=== PATIENT | female | born 1955 | race Caucasian/White ===

== ENCOUNTER → 2017-07-17 | Outpatient (CLI) | payer MEDICARE, MEDICAID ==
--- NOTE | 2017-07-20 11:06 | RADRPT ---
Echocardiogram Report Patient Name: SIM BOND Gender: Female Date: 1955 Study Date: 17-Jul-2017 Cleaning Validation Consultant: ADITI Location: O Ref. Physician: ERIBERTO MIRANDA Quality: Good Procedures: Transthoracic echocardiogram with complete 2D, M-Mode, and doppler examination. Indications: TR and valvular function. 2D/M Mode Doppler Measurement Value Normal Ranges Measurement Value Normal Ranges LVIDd 2D 4.4 3.5 - 5.6 cm AV Peak Neeraj 1.1 m/sec LVIDs 2D 3.1 2.1 - 4.1 cm AV Peak PG 5.1 mmHg LVPWd 2D 0.8 0.6 - 1.1 cm LVOT Peak Neeraj 0.9 m/sec IVSd 2D 0.9 0.6 - 1.1 cm LVOT Peak PG 3.5 mmHg AoR Diam 2D 2.4 2.0 - 3.7 cm MV E Peak Neeraj 0.9 m/sec EDV 2D 85.8 cm3 MV A Peak Neeraj 0.7 m/sec ESV 2D 31.0 cm3 MV E/A 1.3 LA Dimen 2D 2.4 2.3 - 4.0 cm MV Decel Time 244 msec MV Decel Price 4 MV E/A 1.3 TR Peak Neeraj 2.6 m/sec TR Peak PG 27.4 mmHg RVSP 30.0 mmHg Findings Left Ventricle: Normal left ventricular systolic function. Normal left ventricular cavity size. Normal left ventricular wall thickness. Ejection fraction is visually estimated at 65 %. Tissue Doppler/Mitral Doppler indices are consistent with impaired relaxation (Stage I diastolic dysfunction). Right Ventricle: Normal right ventricular size. Normal right ventricular systolic function. Left Atrium: The left atrium is normal in size. Right Atrium: The right atrium is normal in size. Mitral Valve: Mild mitral leaflet calcification. Mild mitral annular calcification. Trace mitral regurgitation. Aortic Valve: Aortic valve not well visualized. Tricuspid Valve: Normal appearance of the tricuspid valve. Estimated peak PA systolic pressure 30 mmHg. There is mild tricuspid regurgitation. Pulmonic Valve: Pulmonic valve not well visualized. There is mild pulmonic regurgitation. Pericardium: Normal pericardium with no significant pericardial effusion. Aorta: Normal aortic root. IVC: Normal size and normal respiratory collapse consistent with normal right atrial pressure. Conclusions 1.Normal left ventricular systolic function. Normal left ventricular cavity size. Normal left ventricular wall thickness. Ejection fraction is visually estimated at 65 %. Tissue Doppler/Mitral Doppler indices are consistent with impaired relaxation (Stage I diastolic dysfunction). 2.Normal right ventricular size. Normal right ventricular systolic function. 3.Mild mitral leaflet calcification. Mild mitral annular calcification. Trace mitral regurgitation. 4.Aortic valve not well visualized. 5.Normal appearance of the tricuspid valve. Estimated peak PA systolic pressure 30 mmHg. There is mild tricuspid regurgitation. 6.Normal pericardium with no significant pericardial effusion. Electronically Signed By: Eriberto Miranda 20-Jul-2017 11:05:43 -0700 Patient Name: SIM BOND Study Date: 17-Jul-2017 [id number]
== END | disposition home or self-care (01) ==
LOC: EKG 13:00
PROVIDERS: ATTEND Internal Medicine
DX: R93.1 Abnormal findings on diagnostic imaging of heart and coronary circulation (principal)
CPT/HCPCS: 93306

== ENCOUNTER → 2019-01-18 | Outpatient (CLI) | payer MEDICARE, MEDICAID ==
--- NOTE | 2019-01-18 17:45 | RADRPT ---
Echocardiogram Report Patient Name: Arnol BOND ID: [id number] : 1955 (63y 2m)Study Date: 01/18/2019 10:49:42 AM Gender: FAccession #: [id number] Tech: Location: Ref.Physician: DEANNE PRATT Height(Cm): BSA: Weight(Kg): Quality: GoodAccount #: Procedures: Echocardiographic Report: Transthoracic echocardiogram with complete 2D, M-Mode, and doppler examination. Indications: Valvular heart disease. Measurements: 2D/M Mode Doppler Measurement Value Normal Range Measurement Value Normal Range LVIDd 2D 4.1 [ 3.8 - 5.2 ] cm MALIA VTI 2.3 [ 2.0 - 4.0 ] cm2 LVIDs 2D 3.5 [ 2.2 - 3.5 ] cm AV Mean Neeraj 0.9 [ 70.0 - 90.0 ] cm/sec LVPWd 2D 0.9 [ 0.6 - 0.9 ] cm AV Mean PG 4.0 [ 2.0 - 4.0 ] mmHg IVSd 2D 0.9 [ 0.6 - 0.9 ] cm AV VTI 27.5 cm EF 2D 30.6 [ 54.0 - 74.0 ] percent LVOT Mean Neeraj 0.6 [ 60.0 - 80.0 ] cm/sec LVOT Diam 2.0 [ 2.1 - 2.5 ] cm LVOT Mean PG 2.0 [ 1.0 - 3.0 ] mmHg LVOT Peak Neeraj 0.9 [ 70.0 - 110.0 ] cm/sec LVOT Peak PG 3.0 [ 2.0 - 6.0 ] mmHg LVOT VTI 20.5 [ 20.0 - 30.0 ] cm MV E Peak Neeraj 0.7 [ 60.0 - 130.0 ] cm/sec MV A Peak Neeraj 0.8 [ 100.0 - 120.0 ] cm/sec MV E/A 0.9 [ 0.8 - 1.5 ] ratio MV Decel Time 187 [ 104 - 258 ] msec Lat E` Neeraj 0.1 [ 10.0 - 15.0 ] cm/sec Lateral E/E` 11.8 [ 1.0 - 2.0 ] ratio Med E` Neeraj 0.1 cm/sec MV E/A 0.9 [ 0.8 - 1.5 ] ratio TR Peak Neeraj 2.1 [ 100.0 - 280.0 ] cm/sec TR Peak PG 17.0 mmHg PV Peak Neeraj 0.7 [ 40.0 - 80.0 ] cm/sec PV Peak PG 2.0 mmHg Findings: Left Ventricle: Normal left ventricular cavity size. Normal left ventricular wall thickness. Moderate left ventricular systolic dysfunction. Ejection fraction is visually estimated at 30-35 %. Tissue Doppler/Mitral Doppler indices are consistent with impaired relaxation (Stage I diastolic dysfunction). Right Ventricle: Normal right ventricular size. Normal right ventricular systolic function. Left Atrium: The left atrium is normal in size. Right Atrium: The right atrium is normal in size. Atrial Septum: Normal atrial septum. Mitral Valve: Normal appearance of the mitral valve. Mild mitral valve regurgitation. Aortic Valve: Normal appearance of the aortic valve. No significant aortic stenosis wiht trivial insufficiency. Tricuspid Valve: Normal appearance of the tricuspid valve. Estimated peak PA systolic pressure 20 mmHg. There is trace tricuspid regurgitation. Pulmonic Valve: Normal pulmonic valve appearance. There is trace pulmonic regurgitation. Pericardium: Normal pericardium with no significant pericardial effusion. No pleural effusion noted. Aorta: Normal aortic root. IVC: Normal size and normal respiratory collapse consistent with normal right atrial pressure. Conclusions: Normal left ventricular cavity size. Normal left ventricular wall thickness. Moderate left ventricular systolic dysfunction. Ejection fraction is visually estimated at 30-35 %. Tissue Doppler/Mitral Doppler indices are consistent with impaired relaxation (Stage I diastolic dysfunction). Normal appearance of the mitral valve. Mild mitral valve regurgitation. n. Normal appearance of the tricuspid valve. Estimated peak PA systolic pressure 20 mmHg. There is trace tricuspid regurgitation. Normal pulmonic valve appearance. There is trace pulmonic regurgitation. n. Electronically Signed By: Ming Luque 2019-01-18 17:45:05 PDT
== END | disposition home or self-care (01) ==
LOC: EKG 10:30
PROVIDERS: ATTEND Internal Medicine Interventional Cardiology
DX: I38 Endocarditis, valve unspecified (principal)
CPT/HCPCS: 93306